=== PATIENT | male | born 1980 | race Caucasian/White ===

== ENCOUNTER 2019-11-24 12:29 | Emergency (ER) | payer MEDICAID ==
[~2019-11-24] VITALS: Ht 162.6 cm; Wt 79.4 kg
[2019-11-24 13:13] VITALS: BP_SYST 127
--- NOTE | 2019-11-24 15:26 | NUR ---
CLARISA Chase examining patient.
--- NOTE | 2019-11-24 15:26 | NUR ---
Patient to ER chair for evaluation. Side rails up. Report given to JED Naqvi
--- NOTE | 2019-11-24 15:29 | NUR ---
Patient came to ER due to cough and nasal congestion. Patient spO2 within normal limits. Patient also complained of abcess pain on chest. Patient not presenting any signs of acute distress. AOx 4.
[2019-11-24] MEDS ORDERED: ACETAMINOPHEN 500 MG TABLET PO ONE (15:45)
--- NOTE | 2019-11-24 16:00 | NUR ---
Patient given written and verbal discharge instructions and verbalizes understanding. ER MD discussed with patient the results and treatment provided. Patient in stable condition. ID arm band removed. IV catheter removed intact and dressing applied, no active bleeding. Rx of tynelol, mupirocin, promethazine, motrin given. Patient educated on pain management and to follow up with PMD. Pain Scale 0/10. Opportunity for questions provided and answered. Medication side effect fact sheet provided.
[2019-11-24 16:11] VITALS: BP_SYST 127
== END 2019-11-24 16:11 | disposition home or self-care (01) ==
LOC: SED 12:29
DX: J06.9 Acute upper respiratory infection, unspecified (principal); L73.9 Follicular disorder, unspecified; R03.0 Elevated blood-pressure reading, without diagnosis of hypertension
CPT/HCPCS: 71045; 99283